=== PATIENT | male | born 1970 | race Caucasian/White ===

== ENCOUNTER 2018-02-05 14:20 | Emergency (ER) | payer OTHER ==
[~2018-02-05] VITALS: Ht 177.8 cm; Wt 77.1 kg
[2018-02-05] MEDS ORDERED: ZESTRIL40 MG PO (14:35)
[2018-02-05] MEDS ORDERED: OMEPRAZOLE20 M1 PO (14:35)
[2018-02-05] MEDS ORDERED: ULTRAM50 MG PO (14:36)
[2018-02-05] MEDS ORDERED: ONDANSETRON ODT8 MG PO (16:26)
--- NOTE | 2018-02-06 07:34 | EKG ---
[facility] [address] [place], [place] [address] Signed Normal sinus rhythm with sinus arrhythmia Normal ECG No previous ECGs available Confirmed by JANINE YANEZ MD ([id number]) on 02/06/2018 7:34:07 AM Electronically Signed By: JANINE YANEZ MD 02/06/18 0734 PATIENT NAME: STEFANI SAGASTUME Electrocardiogram DATE OF : 72 PHYSICIAN: JANINE YANEZ MD REPORT #: [id number] REPORT IS CONFIDENTIAL AND NOT TO BE RELEASED WITHOUT AUTHORIZATION
== END 2018-02-05 16:33 | disposition home or self-care (01) ==
LOC: ED 14:20
DX: K29.00 Acute gastritis without bleeding (principal); I10 Essential (primary) hypertension; Z79.899 Other long term (current) drug therapy
CPT/HCPCS: 80053; 83690; 84484; 85025; 93005; 93010; 96361; 96374; 96375; 99285; J2405; J7030